=== PATIENT | male | born 1990 | race African-American/Black ===

== ENCOUNTER 2017-08-11 09:48 | Emergency (ER) | payer OTHER ==
[~2017-08-11] VITALS: Ht 175.3 cm; Wt 78.9 kg
[~2017-08-11 09:48] MED LIST: BACTRIM DS TAB1 EACH PO; IBUPROFEN 600600 M1 PO; NAPROSYN500 MG PO; NOHOMEMEDICATIONS; TOBRAMYCIN SULFA5 ML OP; ULTRAM 50MG TAB50 MG PO
[2017-08-11] MEDS ORDERED: IBUPROFEN 800800 MG PO (10:29)
[2017-08-11 10:55] VITALS: BP 150/78
== END 2017-08-11 10:58 | disposition home or self-care (01) ==
LOC: ER 09:48
DX: S83.92XA Sprain of unspecified site of left knee, initial encounter (principal); J45.909 Unspecified asthma, uncomplicated; F17.200 Nicotine dependence, unspecified, uncomplicated; X58.XXXA Exposure to other specified factors, initial encounter; Y93.89 Activity, other specified; Y92.89 Other specified places as the place of occurrence of the external cause; Y99.0 Civilian activity done for income or pay